=== PATIENT | female | born 1950 | race Caucasian/White ===

== ENCOUNTER 2016-07-20 07:36 | Inpatient (IN) | payer MEDICARE, OTHER ==
[~2016-07-20] VITALS: Ht 167.6 cm; Wt 112.4 kg
[~2016-07-20 07:36] MED LIST: BUPIVACAINE/PF-EPI 0.5% 1:200K ONE
[2016-07-20] MEDS ORDERED: FENTANYL PF 250 MCG/5ML ONE (08:29)
[2016-07-20] MEDS ORDERED: MIDAZOLAM 1 MG/ML, 2ML ONE (08:29)
[2016-07-20] MEDS ORDERED: LACTATED RINGERS 1,000 ML IV SCH (08:54)
[2016-07-20 09:12] VITALS: BP 149/84
[2016-07-20] MEDS ORDERED: ASPI-496 PO (09:23)
[2016-07-20] MEDS ORDERED: LOSA1TAB16 PO (09:23)
[2016-07-20] MEDS ORDERED: CELE200C PO (09:23)
[2016-07-20] MEDS ORDERED: [UNRECOGNIZED DRUG - CODE] PO (09:23)
[2016-07-20] MEDS ORDERED: CEFAZOLIN 1,000 MG ONE (09:32)
[2016-07-20] MEDS ORDERED: ONDANSETRON 2MG/ML, 2ML ONE (09:32)
[2016-07-20] MEDS ORDERED: ROCURONIUM 10 MG/ML ONE (09:32)
[2016-07-20] MEDS ORDERED: GLYCOPYRROLATE 0.2MG/1ML ONE (09:32)
[2016-07-20] MEDS ORDERED: DEXAMETHASONE 4 MG/ML, 1ML ONE (09:32)
[2016-07-20] MEDS ORDERED: SUCCINYLCHOLINE 20 MG/ML, 10ML ONE (09:32)
[2016-07-20] MEDS ORDERED: NEOSTIGMINE 1 MG/ML, 10ML ONE (09:32)
[2016-07-20] MEDS ORDERED: PROPOFOL 10 MG/ML, 20ML ONE (09:32)
[2016-07-20] MEDS ORDERED: OXYcodone 5 MG/5 ML ORAL.SOL UDC PO PRN (11:00)
[2016-07-20] MEDS ORDERED: LABETALOL 5MG/ML, 20ML IV PRN (11:00)
[2016-07-20] MEDS ORDERED: METOCLOPRAMIDE 5 MG/ML, 2ML IV PRN (11:00)
[2016-07-20] MEDS ORDERED: hydrALAzine 20 MG/ML, 1ML IV PRN (11:00)
[2016-07-20] MEDS ORDERED: ONDANSETRON 2MG/ML, 2ML IVPush PRN (11:00)
[2016-07-20] MEDS ORDERED: HYDROmorphone 1 MG/ML, 1ML IV PRN (11:00)
[2016-07-20] MEDS ORDERED: FENTANYL PF 100 MCG/2ML IV PRN (11:00)
[2016-07-20] MEDS ORDERED: ONDANSETRON 2MG/ML, 2ML IV PRN (17:30)
[2016-07-20] MEDS ORDERED: ACETAMINOPHEN 325 MG TABLET PO PRN (17:30)
[2016-07-20] MEDS ORDERED: morphine SULFATE 10 MG/ML, 1ML IV PRN (17:30)
[2016-07-20 17:47] VITALS: BP 127/70
[2016-07-20 19:10] VITALS: BP 155/83
[2016-07-20] MEDS: KETOROLAC 30 MG/1 ML IV SCH (20:02)
[2016-07-20 23:43] VITALS: BP 128/53
[2016-07-20] MEDS: PROMETHAZINE 25 MG/ML, 1ML IM PRN (23:56)
[2016-07-20] MEDS: OXYcodone 5 MG/5 ML ORAL.SOL UDC PO PRN (23:59)
[2016-07-21 03:47] VITALS: BP 135/71
[2016-07-21] MEDS: OXYcodone 5 MG/5 ML ORAL.SOL UDC PO PRN ×4 (03:55→20:20)
[2016-07-21] MEDS: KETOROLAC 30 MG/1 ML IV SCH ×4 (03:55→14:37)
[2016-07-21] MEDS: PROMETHAZINE 25 MG/ML, 1ML IM PRN (04:09)
[2016-07-21 08:27] VITALS: BP 136/66
[2016-07-21] MEDS: SPIRIVA RESPIMAT 1.25 MCG INH SCH (08:30)
[2016-07-21] MEDS: LOSARTAN 50MG TABLET PO SCH (08:31)
[2016-07-21] MEDS: HYDROCHLOROTHIAZIDE 12.5 MG CAPSULE PO SCH (08:31)
[2016-07-21] MEDS: DOXYCYCLINE 100MG TABLET PO SCH (08:31)
[2016-07-21 14:11] VITALS: BP 120/63
[2016-07-22] MEDS: OXYcodone 5 MG/5 ML ORAL.SOL UDC PO PRN ×6 (00:04→22:09)
[2016-07-22 01:48] VITALS: BP 128/77
[2016-07-22] MEDS: ASPIRIN 325 MG TABLET EC PO SCH (06:11)
[2016-07-22 06:40] VITALS: BP 129/62
[2016-07-22 08:29] LABS: HEMOGLOBIN 13.7 g/dL (11.7-16.4)
[2016-07-22 08:30] LABS: BLOOD UREA NITROGEN 16 mg/dL (7-18)
[2016-07-22] MEDS ORDERED: ALBUTEROL/IPRATROPIUM 2.5MG/0.5MG, 3 ML NEB ONE (08:30)
[2016-07-22] MEDS: DOXYCYCLINE 100MG TABLET PO SCH (08:57)
[2016-07-22] MEDS: LOSARTAN 50MG TABLET PO SCH (08:57)
[2016-07-22] MEDS: HYDROCHLOROTHIAZIDE 12.5 MG CAPSULE PO SCH (08:57)
[2016-07-22] MEDS: SPIRIVA RESPIMAT 1.25 MCG INH SCH (09:00)
[2016-07-22 12:53] VITALS: BP 126/73
[2016-07-22 18:34] VITALS: BP 158/77
[2016-07-23 02:03] VITALS: BP 166/80
[2016-07-23] MEDS: OXYcodone 5 MG/5 ML ORAL.SOL UDC PO PRN ×3 (02:22→12:27)
[2016-07-23 02:25] VITALS: BP 133/79
[2016-07-23] MEDS: ASPIRIN 325 MG TABLET EC PO SCH (06:26)
[2016-07-23 06:53] VITALS: BP 145/83
[2016-07-23] MEDS: SPIRIVA RESPIMAT 1.25 MCG INH SCH (08:07)
[2016-07-23] MEDS: LOSARTAN 50MG TABLET PO SCH (08:09)
[2016-07-23] MEDS: DOXYCYCLINE 100MG TABLET PO SCH (08:10)
[2016-07-23] MEDS: HYDROCHLOROTHIAZIDE 12.5 MG CAPSULE PO SCH (08:10)
[2016-07-23 12:53] VITALS: BP 124/71
[2016-07-23] MEDS ORDERED: FLU VACC QS2016-17 (36MOS+)UP/PF 0.5 ML IM-VACC ONE (14:30)
[2016-07-23 16:07] VITALS: BP 135/59
== END 2016-07-23 16:15 | disposition home or self-care (01) | DRG 493 ==
LOC: OUT 07:36 → ORIP 15:52 → 4NOR 17:14 → OBSVTOIN 07-21 13:10 → INTOOBSV 07-21 13:10
PROVIDERS: ADMIT Orthopaedic Surgery; ATTEND Orthopaedic Surgery
PROC: 0QSK04Z Reposition Left Fibula with Internal Fixation Device, Open Approach (ICD-10-PCS; principal; 2016-07-20 09:30)
DX: S82.62XA Displaced fracture of lateral malleolus of left fibula, initial encounter for closed fracture (principal); Z68.41 Body mass index [BMI] 40.0-44.9, adult; I10 Essential (primary) hypertension; E66.9 Obesity, unspecified; R09.02 Hypoxemia; Z28.21 Immunization not carried out because of patient refusal; G89.29 Other chronic pain; I35.0 Nonrheumatic aortic (valve) stenosis; J44.9 Chronic obstructive pulmonary disease, unspecified; Z87.891 Personal history of nicotine dependence; Z95.2 Presence of prosthetic heart valve; Z96.653 Presence of artificial knee joint, bilateral; Z98.1 Arthrodesis status; Z98.890 Other specified postprocedural states; Z88.2 Allergy status to sulfonamides
CPT/HCPCS: 36415; 71010; 76000; 80048; 85025; C1713; G0378; J0690; J1100; J1885; J2250; J2405; J2550; J2704; J2710; J3010; J3490; J0330; Q0177